=== PATIENT | male | born 1975 | race Caucasian/White ===

== ENCOUNTER 2021-05-20 16:10 | Emergency (ER) | payer MEDICAID, SELFPAY ==
[2021-05-20 16:11] VITALS: BP 111/88; PULSE 74; RESP 16; TEMP 37.2; O2SAT 100; BMI 18.7
[2021-05-20 16:14] VITALS: BP 111/88; PULSE 74; RESP 16; TEMP 37.2; O2SAT 100
== END 2021-05-20 16:55 | disposition left against medical advice (07) ==
LOC: ED 17:25
DX: Z53.21 Procedure and treatment not carried out due to patient leaving prior to being seen by health care provider (principal)